=== PATIENT | female | born 1990 | race Caucasian/White ===

== ENCOUNTER 2017-02-05 16:54 | Emergency (ER) | payer OTHER ==
[2017-02-05 16:58] VITALS: BMI 26.6
--- NOTE | 2017-02-05 17:58 | C.PDOC ---
History Of Present Illness 26 y/o female presents to ED with complaints of generalized abdominal pain since Sunday. Patient also complaints of subjective fever, chills, nausea, headache and diarrhea. Pain is rated 5/10 and is constant. Patient denies neck pain, urinary symptoms, back pain or any other complaints at this time. Time Seen by Provider: 02/05/17 17:48 Chief Complaint (Nursing): Abdominal Pain History Per: Patient History/Exam Limitations: no limitations Onset/Duration Of Symptoms: Days Current Symptoms Are (Timing): Still Present Past Medical History Reviewed: Historical Data, Nursing Documentation, Vital Signs Vital Signs: Last Vital Signs Temp 98.2 F 02/05/17 16:59 Pulse 111 H 02/05/17 16:59 Resp 18 02/05/17 16:59 BP 134/83 02/05/17 16:59 Pulse Ox 100 02/05/17 18:01 Family History: States: No Known Family Hx - Social History Hx Alcohol Use: No Hx Substance Use: No - Immunization History Hx Tetanus Toxoid Vaccination: No Hx Influenza Vaccination: No Hx Pneumococcal Vaccination: No Review Of Systems Except As Marked, All Systems Reviewed And Found Negative. Constitutional: Negative for: Fever, Chills Gastrointestinal: Positive for: Nausea, Abdominal Pain, Diarrhea. Negative for : Vomiting, Constipation Genitourinary: Negative for: Dysuria, Frequency, Incontinence Musculoskeletal: Negative for: Neck Pain, Back Pain Skin: Negative for: Rash Physical Exam - Physical Exam Appears: Non-toxic, No Acute Distress Skin: Normal Color, Warm Head: Atraumatic, Normacephalic Oral Mucosa: Moist Gastrointestinal/Abdominal: Soft, No Tenderness, No Guarding, No Rebound Back: No CVA Tenderness Extremity: Normal ROM, Capillary Refill (<2 seconds) Neurological/Psych: Oriented x3, Normal Speech ED Course And Treatment - Laboratory Results Result Diagrams: 02/05/17 18:37 O2 Sat by Pulse Oximetry: 100 (RA) Pulse Ox Interpretation: Normal Disposition Counseled Patient/Family Regarding: Studies Performed, Diagnosis - Disposition Disposition: HOME/ ROUTINE Disposition Time: 18:47 Condition: STABLE Forms: [facility] ([place]an) - POA Present On Arrival: None - Clinical Impression Clinical Impression: Abdominal pain, Diarrhea - Scribe Statement The provider has reviewed the documentation as recorded by the Miguelibceci Varela All medical record entries made by the Scribe were at my direction and personally dictated by me. I have reviewed the chart and agree that the record accurately reflects my personal performance of the history, physical exam, medical decision making, and the department course for this patient. I have also personally directed, reviewed, and agree with the discharge instructions and disposition. Physician Patient Turnover Patient Signed Over To: Rosaura Warren Handoff Comments: Patient with c/o abdominal cramping and diarrhea. Pending labs , hydration and re-eval.[email or web address]
[2017-02-05] MEDS ORDERED: Belladonna-Phenobarbital PO STA (18:27)
[2017-02-05] MEDS ORDERED: Sodium Chloride 0.9% 1,000 ML IV ONE (18:27)
[2017-02-05] MEDS ORDERED: Aluminum Hydroxide/Magnesium Hydroxide Susp (30 mL) PO STA (18:27)
[2017-02-05 18:42] LABS: BASO % 0.5 % (0.0-2.0); EOS # 0.4 K/uL (0.0-0.7); EOS % 5.5 % (0.0-4.0); HEMATOCRIT 34.4 % (34.0-47.0); LYMPH % 26.4 % (20.0-40.0); MEAN CELL VOLUME 90.5 fL (81.0-99.0); MEAN CORPUSCULAR HGB CONC 34.3 g/dL (33.0-37.0); MEAN PLATELET VOLUME 8.7 fL (7.2-11.7); MONO # 0.8 K/uL (0.0-0.8); MONO % 10.2 % (0.0-10.0); RED CELL DISTRIBUTION WIDTH 13.3 % (11.5-14.5); WHITE BLOOD COUNT 7.4 K/uL (4.8-10.8)
[2017-02-05 18:47] LABS: RBC URINE 1 /hpf (0-3); URINE BACTERIA RARE (<OCC); URINE BILIRUBIN NEGATIVE (NEGATIVE); URINE BLOOD NEGATIVE (NEGATIVE); URINE COLOR Yellow (YELLOW); URINE GLUCOSE (UA) NORMAL (Normal); URINE KETONE NEGATIVE (NEGATIVE); URINE LEUKOCYTE ESTERASE NEG Leu/uL (Negative); URINE PROTEIN NEGATIVE (NEGATIVE); URINE UROBILINOGEN NORMAL mg/dL (0.2-1.0); WBC URINE 2 /hpf (0-5)
[2017-02-05 18:48] LABS: CHLORIDE 101 mmol/L (98-107); POTASSIUM 3.2 mmol/L (3.6-5.2); SODIUM 139 mmol/L (132-148)
[2017-02-05] MEDS ORDERED: Aluminum Hydroxide/Magnesium Hydroxide Susp (30 mL) ONE (18:48)
[2017-02-05] MEDS ORDERED: Belladonna-Phenobarbital ONE (18:48)
[2017-02-05] MEDS ORDERED: Sodium Chloride 0.9% 1,000 ML ONE (18:48)
[2017-02-05 18:51] LABS: BLOOD UREA NITROGEN 6 mg/dL (7-17); CARBON DIOXIDE 25 mmol/L (22-30); GFR AFRICAN-AMERICAN > 60; GLUCOSE,RANDOM 91 mg/dL (65-105)
[2017-02-05 18:52] LABS: CALCIUM 8.6 mg/dl (8.6-10.4)
[2017-02-05] MEDS ORDERED: Potassium Chloride 20 mEq/15 ml LIQ UD PO STA (18:57)
[2017-02-05] MEDS ORDERED: Potassium Chloride 20 mEq ER Tab PO ONE (19:11)
[2017-02-05 19:28] VITALS: BP 116/68; PULSE 60; RESP 20; TEMP 98.7; O2SAT 99
== END 2017-02-05 19:30 | disposition home or self-care (01) ==
LOC: C.ER 16:54
DX: R10.84 Generalized abdominal pain (principal); R19.7 Diarrhea, unspecified; E87.6 Hypokalemia
CPT/HCPCS: 80048; 81001; 84703; 85025; 96361; 96374; 96375; 99285; J2405; J7040